=== PATIENT | male | born 1985 | race Caucasian/White ===

== ENCOUNTER 2017-01-06 08:33 | Emergency (ER) | payer BC ==
--- NOTE | 2017-01-06 09:00 | EDM.PDOC ---
ED HPI GENERAL MEDICAL PROBLEM - General Chief Complaint: Upper Extremity Injury/Pain Stated Complaint: PAIN AND SWELLING TO LEFT ARM Time Seen by Provider: 01/06/17 08:52 - History of Present Illness INITIAL COMMENTS - FREE TEXT/NARRATIVE: HISTORY AND PHYSICAL: History of present illness: The patient is a healthy 31-year-old male who presents with 2 day history of pain and swelling to the volar aspect of his left wrist with decreased range of motion at the wrist. The patient denies any proximal forearm elbow humerus or shoulder pain and says that he has had the discomfort for 2 days. 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 He also says that he gets "twinges of pain" along his left bicep area but that has been going on for over a year and he is not concerned about that. He has no weakness in the left upper extremity and he is right-hand dominant. He has no head or neck pain and no systemic complaints of fever chills chest pain shortness of breath abdominal pain vomiting or diarrhea. The patient thought that potentially the wrist pain could be related to his heart and he is concerned about that but he denies any specific chest pain or shortness of breath. Patient has taken Aleve 1 dose this morning for the discomfort. He denies any direct trauma to the area Review of systems: As per history of present illness and below otherwise all systems reviewed and negative. Past medical history: As per history of present illness and as reviewed below otherwise noncontributory. Surgical history: As per history of present illness and as reviewed below otherwise noncontributory. Social history: No reported history of drug or alcohol abuse. Family history: As per history of present illness and as reviewed below otherwise noncontributory. Physical exam: Gen.: Well-developed well-nourished man who is nontoxic. Vital signs of an by me and I discussed history as blood pressure with him. HEENT: Atraumatic, normocephalic, negative for conjunctival pallor or scleral icterus, mucous membranes moist, throat clear, neck supple, nontender, trachea midline. There are no midline step-offs tenderness defects of the cervical spine Lungs: Clear to auscultation, breath sounds equal bilaterally, chest nontender. Heart: S1S2, regular rate and rhythm no overt murmurs Abdomen: Soft nontender bowel sounds are normoactive Skin: No diaphoresis normal turgor no evidence of any overt rashes or lesions Genitourinary: Deferred. Rectal: Deferred. Extremities: Atraumatic, negative for cords or calf pain. Neurovascular unremarkable. All extremities have full range of motion without any defects or deficits of the no palpable deformities throughout the left upper extremity. The compartments are soft and there is no erythema ecchymosis or lymphadenopathy in the axillary area. There is some diffuse soft tissue swelling noted at the volar aspect of the wrist but the patient is able to range of motion at the digits and there are no neurosensory changes appreciated in the hand or fingers. When the patient is asked to put his wrist at 90 flexion or extension he is unable to do so due to discomfort and pressure. He doesn't feel any tingling or numbness in his fingers with these activities. Neuro: Awake, alert, oriented. Cranial nerves II through XII unremarkable. Cerebellum unremarkable. Motor and sensory unremarkable throughout. Exam nonfocal. Diagnostics: X-ray left wrist, EKG per patient concern Therapeutics: Velcro wrist splint prednisone Repeat blood pressure was 162/97. I've discussed this elevation with the patient and the need to follow-up with primary care. I discussed with the patient that many of the symptoms he is exhibiting his inability to flex and extend at the wrist without discomfort in the inhibition of that motion as well as the inflammation along the volar aspect of the wrist are consistent with early carpal tunnel or tendon sprain strain. I will refer him to our hand specialist for further evaluation and will recommend immobilization of the wrist ice elevation and anti-inflammatories Impression: Left wrist pain rule out carpal tunnel Definitive disposition and diagnosis as appropriate pending reevaluation and review of above. left hand Pain Score (Numeric/FACES): 8 right shoulder Pain Score (Numeric/FACES): 4 left arm Pain Score (Numeric/FACES): 1 - Related Data Allergies Allergy/AdvReac Type Severity Reaction Status Date / Time No Known Allergies Allergy Verified 01/06/17 08:52 Home Meds: Home Meds . [No Known Home Meds] 01/06/17 [History] Review of Systems - Review of Systems Review Of Systems: ROS reveals no pertinent complaints other than HPI. ED EXAM, GENERAL - Physical Exam Exam: See Below (See dictation) Course - Vital Signs Last Recorded V/S: Last Vital Signs Temp 36.4 C 01/06/17 08:35 Pulse 72 01/06/17 09:17 Resp 16 01/06/17 09:17 BP 162/97 H 01/06/17 09:17 Pulse Ox 96 01/06/17 09:17 - Orders/Labs/Meds Orders: Active Orders 24 hr Category Date Time Status EKG Documentation Completion [RC] STAT Care 01/06/17 08:53 Active DME for Discharge [COMM] Stat Oth 01/06/17 09:16 Ordered Departure - Departure Time of Disposition: 09:49 Disposition: Home, Self-Care 01 Condition: Good Clinical Impression: Wrist pain, left - Discharge Information Referrals: PCP,None [Primary Care Provider] - Forms: ED Department Discharge Additional Instructions: The following information is given to patients seen in the emergency department who are being discharged to home. This information is to outline your options for follow-up care. We provide all patients seen in our emergency department with a follow-up referral. The need for follow-up, as well as the timing and circumstances, are variable depending upon the specifics of your emergency department visit. If you don't have a primary care physician on staff, we will provide you with a referral. We always advise you to contact your personal physician following an emergency department visit to inform them of the circumstance of the visit and for follow-up with them and/or the need for any referrals to a consulting specialist. The emergency department will also refer you to a specialist when appropriate. This referral assures that you have the opportunity for followup care with a specialist. All of these measure are taken in an effort to provide you with optimal care, which includes your followup. Under all circumstances we always encourage you to contact your private physician who remains a resource for coordinating your care. When calling for followup care, please make the office aware that this follow-up is from your recent emergency room visit. If for any reason you are refused follow-up, please contact the [facility] emergency department at and ask to speak to the emergency department charge nurse. [facility] Specialty clinic-Plastic Surgery and Hand Surgery Professional [id number] [facility] Primary care- Internal Medicine and Family [facility] [address] [place] [id number] Please connect with her hand specialist for further care and evaluation of your wrist as we discussed and ice and elevate, and use the Velcro splint until she follows up with you. Please use [id number] anti-inflammatory such as Aleve in the proper doses or ibuprofen/Motrin in the proper dosage. Return to ER as needed and as discussed. Please also connect with one of our clinic physicians for evaluation of other concerns you are having as well as your blood pressure. - My Orders Last 24 Hours: My Active Orders 01/06/17 08:53 EKG Documentation Completion [RC] STAT 01/06/17 09:16 DME for Discharge [COMM] Stat - Assessment/Plan Last 24 Hours: My Active Orders 01/06/17 08:53 EKG Documentation Completion [RC] STAT 01/06/17 09:16 DME for Discharge [COMM] Stat
--- NOTE | 2017-01-06 09:48 | CR ---
EXAMINATION: Left wrist HISTORY: Pain COMPARISON: None TECHNIQUE: 2 views FINDINGS/IMPRESSION: There is no acute osseous abnormality, dislocation, or fracture. Bone mineraliza tion and joint spaces are normal. No soft tissue swelling.
[2017-01-06] MEDS ORDERED: predniSONE 20 MG Tab PO ONE (09:50)
[2017-01-06 10:25] VITALS: BP 171/107
== END 2017-01-06 10:04 | disposition home or self-care (01) ==
LOC: MW.ED 08:33
DX: M25.532 Pain in left wrist (principal)
CPT/HCPCS: 73100; 93005; 99283; A9270